=== PATIENT | male | born 2000 | race Caucasian/White ===

== ENCOUNTER 2022-08-15 17:17 | Emergency (ER) | payer BC ==
[~2022-08-15] VITALS: Ht 177.8 cm; Wt 65.8 kg
[2022-08-15 17:40] VITALS: BP_SYST 116
[2022-08-15] MEDS ORDERED: KETOROLAC TROMETHAMINE 60 MG/2 ML VIAL IM ONE (19:30)
[2022-08-15] MEDS ORDERED: IBUP-1971 PO (20:41)
[2022-08-15] MEDS ORDERED: HYDR-3917 PO (20:41)
[2022-08-15 20:57] VITALS: BP_SYST 118
== END 2022-08-15 20:57 | disposition home or self-care (01) ==
LOC: SED 17:17
DX: M54.50 Low back pain, unspecified (principal); M54.2 Cervicalgia; M25.511 Pain in right shoulder; Z79.899 Other long term (current) drug therapy
CPT/HCPCS: 99283; 96372; J1885